=== PATIENT | male | born 1985 | race Two or more races ===

== ENCOUNTER → 2024-11-09 | Outpatient (BNVA) | payer BC, SELFPAY | END | disposition home or self-care (01) | PROVIDERS: PCP Family Medicine; Referring Provider Family Medicine; Visit Provider Student in an Organized Health Care Education/Training Program | DX: N47.1 Phimosis (principal); N52.9 Male erectile dysfunction, unspecified | CPT/HCPCS: 99212; G0463 ==

== ENCOUNTER → 2025-02-17 | Outpatient (BNVA) | payer BC, SELFPAY | END | disposition home or self-care (01) | PROVIDERS: PCP Family Medicine; Referring Provider Family Medicine; Visit Provider Urology | DX: N40.0 Benign prostatic hyperplasia without lower urinary tract symptoms (principal); N52.9 Male erectile dysfunction, unspecified; N48.1 Balanitis; E66.9 Obesity, unspecified; Z68.36 Body mass index [BMI] 36.0-36.9, adult | CPT/HCPCS: 81003; 99212; G0463 ==

== ENCOUNTER → 2025-03-08 | Day surgery (SDC) | payer BC, SELFPAY ==
[2025-03-07 11:10] VITALS: BMI 37.2
--- NOTE | 2025-03-07 14:39 | SUR.PREOP ---
Pt notified to come in at 0830 tomorrow. Interview done over the phone, instructions given for NPO after MN and trim pubic hair.
[2025-03-08] VITALS (8 sets, daily range): BP systolic 102–123; BP diastolic 60–82; PULSE 69–83; RESP 14–20; TEMP 36.4–37.1; O2SAT 95–98; BMI 37.0
--- NOTE | 2025-03-08 14:50 | SUR.PHASEI ---
pt obtunded, breathing unlabored, dressing to penis clean, dry, and intact, VS stable, report from Sascha GAVIN, and Dr Almonte
--- NOTE | 2025-03-08 15:07 | ESOP_ITS ---
Date of Procedure 03/08/25 Pre Op Diagnosis Preputial adhesions, redundant prepuce, erectile dysfunction on Cialis Post Op Diagnosis Same Procedure Release of adhesions and circumcision Findings Blood pressure adhesions and redundant prepuce Procedure Description Indication for procedure this is a 40-year-old gentleman this patient has erec tile dysfunction he is on Cialis he has a redundant prepuce and preputial adhesion desired circumcision procedure and complications were discussed with the patient in great detail informed consent is obtained Patient was brought to the operating room in a satisfactory condition after appropriate premedication he was put on the operating table in a supine position he was appropriately identified by surgeon and operating room staff. General anesthesia was given uneventfully parts were prepped and draped in usual sterile fashion. Next preputial adhesions were released. There was smegma under the prepuce which was cleaned. Prepuce was irritated. Next a circumferential skin incision was made on the skin aspect of the prepuce it was carried down to deep layers proper hemostasis were secured. Prepuce was retracted another circumferential skin incision was made on the mucosal aspect of the prepuce leaving a cuff of about 7 mm, skin between 2 incision was excised again proper hemostasis was secured next to skin to mucosa was approximated with 3-0 chromic catgut in interrupted fashion sterile dressings were applied patient after having tolerated the procedure well was transferred to the recovery room in a satisfactory condition. He will be discharged home with the full postoperative instructions verbally as well as in writing to follow-up with [place] 9:00 tomorrow Anesthesia GETA Pathology / specimen None Estimated Blood Loss 10 Condition Stable Disposition PACU Surgeon Imtiaz Moreno MD Surgical Staff Operation Date: 03/08/25 10:30 Case Staff Anesthesiologist: Jamar Almonte
--- NOTE | 2025-03-08 15:18 | SUR.PHASEI ---
pt able to tolerate oral fluids without difficulty swallowing or n/v
--- NOTE | 2025-03-08 16:12 | SUR.PHASEII ---
pt awake, alert, able to follow commands, breathing unlabored, dressing to penis clean, dry, and intact, VS stable, discharge instructions given with present, both pt and verbalize understanding of discharge instructions, pt discharged via wheelchair with all belongings and copies of discharge paperwork.
== END | disposition home or self-care (01) ==
PROVIDERS: PCP Family Medicine; Referring Provider Urology; Visit Provider Urology
PROC: (CPT 54161; principal; 2025-03-08 10:30)
DX: N47.8 Other disorders of prepuce (principal); N47.5 Adhesions of prepuce and glans penis; N52.9 Male erectile dysfunction, unspecified
CPT/HCPCS: 54161; A4217; A4649; J0131; J1100; J1885; J2250; J2405; J2704; J3010; J3490; A9270; J0665

== ENCOUNTER → 2025-06-19 | Outpatient (BNVA) | payer BC, SELFPAY | END | disposition home or self-care (01) | PROVIDERS: PCP Family Medicine; Referring Provider Family Medicine; Visit Provider Urology | DX: N52.9 Male erectile dysfunction, unspecified (principal); E66.9 Obesity, unspecified; Z71.3 Dietary counseling and surveillance; Z68.39 Body mass index [BMI] 39.0-39.9, adult | CPT/HCPCS: 99212; G0463 ==